=== PATIENT | female | born 1995 | race American Indian/Alaskan Native ===

== ENCOUNTER 2016-10-17 18:14 | Emergency (ER) | payer SELFPAY ==
[2016-10-17 18:34] VITALS: BP 101/73
== END 2016-10-17 20:20 | disposition left against medical advice (07) ==
LOC: ED 18:14
DX: H57.8 Other specified disorders of eye and adnexa (principal); Z53.21 Procedure and treatment not carried out due to patient leaving prior to being seen by health care provider

== ENCOUNTER 2017-03-18 15:43 | Emergency (ER) | payer SELFPAY ==
[2017-03-18] MEDS ORDERED: ZOFRAN ODT ONE (15:57)
[2017-03-18] MEDS ORDERED: ZOFRAN ODT PO ONE (16:00)
[2017-03-18 16:36] LABS: Basophils % (Auto) 0.4 % (0.0-1.8); Eosinophils % (Auto) 0.1 % (0.0-4.3); Hematocrit 38.3 % (30.3-42.9); Hemoglobin 12.7 gm/dl (10.1-14.3); Mean Corpuscular HGB Conc 33 % (30-34); Mean Corpuscular Hemoglobin 29 pg (28-32); Mean Corpuscular Volume 88 fl (79-97); Platelet Count 183 K/mm3 (140-440); Red Blood Count 4.36 M/mm3 (3.65-5.03); Red Cell Distribution Width 15.5 % (13.2-15.2); White Blood Count 10.3 K/mm3 (4.5-11.0)
[2017-03-18 16:50] LABS: Anion Gap 22 mmol/L; BUN/Creatinine Ratio 23.33; Blood Urea Nitrogen 14 mg/dL (7-17); Calcium 8.9 mg/dL (8.4-10.2); Carbon Dioxide 18 mmol/L (22-30); Chloride 102.1 mmol/L (98-107); Glucose 93 mg/dL (65-100); Potassium 3.5 mmol/L (3.6-5.0); Sodium 139 mmol/L (137-145)
[2017-03-18 19:27] LABS: Bilirubin,Urine NEG (Negative); Blood,Urine MOD (Negative); Ketones,Urine 80 mg/dL (Negative); Leukocyte Esterase,Urine TR (Negative); Mucus,Urine 3+ /HPF; Nitrite,Urine NEG (Negative); Urobilinogen,Urine < 2.0 mg/dL (<2.0)
[2017-03-18 19:28] LABS: RBC,Urine > 182.0 /HPF (0.0-6.0)
[2017-03-18] MEDS ORDERED: ZOFRAN IV ONE (20:53)
[2017-03-18] MEDS ORDERED: PEPCID IV ONE (20:53)
[2017-03-18] MEDS ORDERED: MORPHINE IV ONE (20:53)
[2017-03-18] MEDS ORDERED: D5NS 1,000 ML IV SCH ×2 (21:00)
[2017-03-18] MEDS ORDERED: K-DUR PO ONE (21:18)
--- NOTE | 2017-03-18 21:18 | Emergency Department Report ---
ED Abdominal Pain HPI - General Chief Complaint: Abdominal Pain Stated Complaint: ABDOMINAL PAIN/NAUSEA Time Seen by Provider: 03/18/17 20:45 Source: patient, family Mode of arrival: Ambulatory Limitations: No Limitations - History of Present Illness Initial Comments: 21-year-old female with no significant past medical or surgical history presents to the hospital with complaints of nausea, vomiting, and abdominal pain since this morning. Patient complains of intermittent lower abdominal cramping pain rated 8/10 in intensity. Pain worse with palpation at times. Patient also complains of discomfort in her chest after vomiting. She denies melena, hematochezia, hematemesis, fever, sick contacts, or recent travel. Patient currently on menstrual cycle. Patient complaining a recent cough and congestion and use the Robitussin-DM Severity scale (0 -10): 7 - Related Data Previous Rx's Medication Instructions Recorded Last Taken Type Bismuth Subsalicylate [Pepto 524 mg PO QID PRN #20 tab.chew 03/18/17 Unknown Rx Bismol] Ondansetron [Zofran Odt] 4 mg PO Q8HR PRN #20 tab.rapdis 03/18/17 Unknown Rx Allergies Allergy/AdvReac Type Severity Reaction Status Date / Time No Known Allergies Allergy Verified 03/18/17 15:49 ED Review of Systems ROS: Stated complaint: ABDOMINAL PAIN/NAUSEA Other details as noted in HPI Comment: All other systems reviewed and negative Other: Constitutional: No fevers chills Eyes: No eye pain visual changes or discharge ENT: No ear pain or throat pain Neck: Denies pain Respiratory: Denies shortness of breath Cardiovascular: Denies chest pain, palpitations, syncope GI: As per HPI : Denies dysuria, urinary frequency, or urgency Musculoskeletal: Denies back pain, joint swelling Skin: Denies rash, lesions, erythema Neurologic: Denies headache, numbness, weakness Psychiatric: Denies suicidal ideation, hallucinations ED Past Medical Hx - Past Medical History Previous Medical History?: No - Surgical History Past Surgical History?: No - Social History Smoking Status: Never Smoker Substance Use Type: None - Medications Home Medications: Home Medications Medication Instructions Recorded Confirmed Last Taken Type Bismuth Subsalicylate [Pepto 524 mg PO QID PRN #20 tab.chew 03/18/17 Unknown Rx Bismol] Ondansetron [Zofran Odt] 4 mg PO Q8HR PRN #20 tab.rapdis 03/18/17 Unknown Rx ED Physical Exam - General Limitations: No Limitations - Other Other exam information: General: No limitations, patient is alert in no acute distress Head exam: Atraumatic, normocephalic Eyes exam: Normal appearance ENT: Dry mucous membrane Neck exam: Normal inspection, full range of motion, no meningismus nontender Respiratory exam: Clear to auscultation bilateral, no wheezes, rales, crackles Cardiovascular: Normal rate and rhythm, normal heart sounds Abdomen: Soft, nondistended, and nontender, with normal bowel sounds, no rebound, or guarding Extremity: Full range of motion normal inspection no deformity Back: Normal Inspection, full range of motion, no tenderness Neurologic: Alert, oriented x3, cranial nerves intact, no motor or sensory deficit Psychiatric: normal affect, normal mood Skin: Warm, dry, intact ED Course Vital Signs 03/18/17 03/18/17 03/18/17 15:50 20:18 20:30 Temperature 98.0 F Pulse Rate 60 91 H 56 L Respiratory 24 16 9 L Rate Blood Pressure 132/85 121/66 O2 Sat by Pulse 100 100 Oximetry 03/18/17 03/18/17 03/18/17 21:00 21:30 22:00 Temperature Pulse Rate 75 76 74 Respiratory 20 23 11 L Rate Blood Pressure 120/75 103/60 103/63 O2 Sat by Pulse 99 98 100 Oximetry - Reevaluation(s) Reevaluation #1: 03/18/17 23:03 Patient feeling much better with ED treatment ED Medical Decision Making - Lab Data Result diagrams: 03/18/17 16:07 03/18/17 16:04 Lab Results 03/18/17 03/18/17 03/18/17 Range/Units 16:04 16:07 16:07 WBC 10.3 (4.5-11.0) K/mm3 RBC 4.36 (3.65-5.03) M/mm3 Hgb 12.7 (10.1-14.3) gm/dl Hct 38.3 (30.3-42.9) % MCV 88 (79-97) fl MCH 29 (28-32) pg MCHC 33 (30-34) % RDW 15.5 H (13.2-15.2) % Plt Count 183 (140-440) K/mm3 Lymph % (Auto) 8.2 L (13.4-35.0) % [place] % (Auto) 3.9 (0.0-7.3) % Eos % (Auto) 0.1 (0.0-4.3) % Baso % (Auto) 0.4 (0.0-1.8) % Lymph # 0.8 L (1.2-5.4) K/mm3 [place] # 0.4 (0.0-0.8) K/mm3 Eos # 0.0 (0.0-0.4) K/mm3 Baso # 0.0 (0.0-0.1) K/mm3 Seg Neutrophils % 87.4 H (40.0-70.0) % Seg Neutrophils # 9.0 H (1.8-7.7) K/mm3 Sodium 139 (137-145) mmol/L Potassium 3.5 L (3.6-5.0) mmol/L Chloride 102.1 (98-107) mmol/L Carbon Dioxide 18 L (22-30) mmol/L Anion Gap 22 mmol/L BUN 14 (7-17) mg/dL Creatinine 0.6 L (0.7-1.2) mg/dL Estimated GFR > 60 ml/min BUN/Creatinine Ratio 23.33 % Glucose 93 (65-100) mg/dL Calcium 8.9 (8.4-10.2) mg/dL HCG, Qual Negative (Negative) Urine Color (Yellow) Urine Turbidity (Clear) Urine pH (5.0-7.0) Ur Specific [place] (1.003-1.030) Urine Protein (Negative) mg/dL Urine Glucose (UA) (Negative) mg/dL Urine Ketones (Negative) mg/dL Urine Blood (Negative) Urine Nitrite (Negative) Urine Bilirubin (Negative) Urine Urobilinogen (<2.0) mg/dL Ur Leukocyte Esterase (Negative) Urine WBC (Auto) (0.0-6.0) /HPF Urine RBC (Auto) (0.0-6.0) /HPF U Epithel Cells (Auto) (0-13.0) /HPF Urine Mucus /HPF 03/18/17 Range/Units 19:06 WBC (4.5-11.0) K/mm3 RBC (3.65-5.03) M/mm3 Hgb (10.1-14.3) gm/dl Hct (30.3-42.9) % MCV (79-97) fl MCH (28-32) pg MCHC (30-34) % RDW (13.2-15.2) % Plt Count (140-440) K/mm3 Lymph % (Auto) (13.4-35.0) % [place] % (Auto) (0.0-7.3) % Eos % (Auto) (0.0-4.3) % Baso % (Auto) (0.0-1.8) % Lymph # (1.2-5.4) K/mm3 [place] # (0.0-0.8) K/mm3 Eos # (0.0-0.4) K/mm3 Baso # (0.0-0.1) K/mm3 Seg Neutrophils % (40.0-70.0) % Seg Neutrophils # (1.8-7.7) K/mm3 Sodium (137-145) mmol/L Potassium (3.6-5.0) mmol/L Chloride (98-107) mmol/L Carbon Dioxide (22-30) mmol/L Anion Gap mmol/L BUN (7-17) mg/dL Creatinine (0.7-1.2) mg/dL Estimated GFR ml/min BUN/Creatinine Ratio % Glucose (65-100) mg/dL Calcium (8.4-10.2) mg/dL HCG, Qual (Negative) Urine Color Yellow (Yellow) Urine Turbidity Clear (Clear) Urine pH 7.0 (5.0-7.0) Ur Specific [place] 1.030 (1.003-1.030) Urine Protein 100 mg/dl (Negative) mg/dL Urine Glucose (UA) Neg (Negative) mg/dL Urine Ketones 80 (Negative) mg/dL Urine Blood Mod (Negative) Urine Nitrite Neg (Negative) Urine Bilirubin Neg (Negative) Urine Urobilinogen < 2.0 (<2.0) mg/dL Ur Leukocyte Esterase Tr (Negative) Urine WBC (Auto) 2.0 (0.0-6.0) /HPF Urine RBC (Auto) > 182.0 (0.0-6.0) /HPF U Epithel Cells (Auto) 2.0 (0-13.0) /HPF Urine Mucus 3+ /HPF - Medical Decision Making Received DnS 2 L, Zofran, and potassium in the ED. She reports feeling much better and able to tolerate by mouth. She will be discharged home with - Differential Diagnosis gastroenteritis, gastroparesis, appendicitis, , UTI Critical Care Time: No Critical care attestation.: If time is entered above; I have spent that time in minutes in the direct care of this critically ill patient, excluding procedure time. ED Disposition Clinical Impression: URI (upper respiratory infection), Gastroenteritis, Hypokalemia Disposition: TO HOME OR SELFCARE Is pt being admited?: No Does the pt Need Aspirin: No Condition: Stable Instructions: Upper Respiratory Infection (ED), Gastroenteritis (ED), Hypokalemia (ED) Additional Instructions: Take the medication as prescribed. Follow-up with your primary care doctor or the doctor provided. Return if symptoms worsen. Continue to drink plenty of fluids. Prescriptions: Bismuth Subsalicylate [Pepto Bismol] 524 mg PO QID PRN #20 tab.chew PRN Reason: Diarrhea Ondansetron [Zofran Odt] 4 mg PO Q8HR PRN #20 tab.rapdis PRN Reason: Nausea And Vomiting Referrals: PRIMARY MD CONG [Primary Care Provider] - 3-5 Days [facility] [Provider Group] - 3-5 Days SUSAN CASTRO MD [Staff Physician] - 3-5 Days Time of Disposition: 23:06
[2017-03-18] MEDS ORDERED: BENADRYL IV ONE (23:11)
[2017-03-18] MEDS ORDERED: REGLAN IV ONE (23:11)
[2017-03-19 00:21] VITALS: BP 118/76
== END 2017-03-19 00:20 | disposition home or self-care (01) ==
LOC: ED 15:43
DX: J06.9 Acute upper respiratory infection, unspecified (principal); K52.9 Noninfective gastroenteritis and colitis, unspecified; E87.6 Hypokalemia
CPT/HCPCS: 36415; 80048; 81001; 84703; 85025; 96361; 96374; 96375; 99284; J1200; J2270; J2405; J2765; J7042; Q0162

== ENCOUNTER 2017-03-20 08:28 | Emergency (ER) | payer OTHER ==
[2017-03-20 09:22] LABS: Basophils % (Auto) 0.7 % (0.0-1.8); Eosinophils % (Auto) 0.7 % (0.0-4.3); Hematocrit 37.3 % (30.3-42.9); Hemoglobin 11.9 gm/dl (10.1-14.3); Mean Corpuscular HGB Conc 32 % (30-34); Mean Corpuscular Hemoglobin 28 pg (28-32); Mean Corpuscular Volume 89 fl (79-97); Platelet Count 191 K/mm3 (140-440); Red Cell Distribution Width 15.7 % (13.2-15.2)
[2017-03-20 09:30] LABS: Anion Gap 19 mmol/L; BUN/Creatinine Ratio 16.25; Blood Urea Nitrogen 13 mg/dL (7-17); Calcium 8.8 mg/dL (8.4-10.2); Carbon Dioxide 21 mmol/L (22-30); Glucose 94 mg/dL (65-100); Potassium 3.6 mmol/L (3.6-5.0); Sodium 139 mmol/L (137-145)
[2017-03-20] MEDS ORDERED: ZOFRAN IV ONE ×2 (10:28→16:52)
[2017-03-20] MEDS ORDERED: REGLAN IV ONE (10:28)
[2017-03-20] MEDS ORDERED: BENADRYL IV ONE (10:28)
[2017-03-20] MEDS ORDERED: MORPHINE IV ONE ×2 (10:28→16:41)
[2017-03-20] MEDS ORDERED: PEPCID IV ONE (10:48)
[2017-03-20] MEDS ORDERED: NACL ONE (10:51)
[2017-03-20] MEDS ORDERED: ATIVAN IV ONE (10:57)
[2017-03-20] MEDS ORDERED: ALUM-MAG HYDROX-SIMETH 200-200-20MG/5ML PO ONE (10:58)
[2017-03-20] MEDS ORDERED: LIDOCAINE VISCOUS 2% PO ONE (10:58)
[2017-03-20] MEDS ORDERED: ZOFRAN ODT ONE (10:59)
[2017-03-20 11:00] LABS: Alanine Aminotransferase 12 units/L (7-56); Albumin 4.2 g/dL (3.9-5); Albumin/Globulin Ratio 1.3 %; Alkaline Phosphatase 48 units/L (35-129); Lipase 37 units/L (13-60); Total Protein 7.5 g/dL (6.3-8.2)
[2017-03-20] MEDS ORDERED: D5NS 1,000 ML IV SCH ×3 (11:00→13:00)
[2017-03-20 11:36] LABS: Bilirubin,Direct < 0.2 mg/dL (0-0.2)
--- NOTE | 2017-03-20 11:49 | Emergency Department Report ---
ED N/V/D HPI - General Chief complaint: Nausea/Vomiting/Diarrhea Stated complaint: NAUSEA AND VOMITING Time Seen by Provider: 03/20/17 10:18 Source: patient Mode of arrival: Ambulatory Limitations: No Limitations - History of Present Illness Initial comments: 21 year female old with no significant past medical surgical history presents to the hospital complaining of nausea, vomiting, and a little diarrhea 2 days. Patient presented on the and is seen and evaluated by me. Prescribed Zofran and Pepto-Bismol. Patient continues to vomit despite Zofran and has been unable to tolerate by mouth intake. Patient presents tremulous and crying stating she's having significant discomfort (secondary to burning in her the middle of her chest). She denies abdominal pain and fever. Diarrhea has improved. Once again she denies recent travel or sick contacts. Patient expresses concern for pneumonia but states she is no longer coughing. Patient seems extremely anxious. - Related Data Previous Rx's Medication Instructions Recorded Last Taken Type Bismuth Subsalicylate [Pepto 524 mg PO QID PRN #20 tab.chew 03/18/17 Unknown Rx Bismol] Ondansetron [Zofran Odt] 4 mg PO Q8HR PRN #20 tab.rapdis 03/18/17 Unknown Rx Allergies Allergy/AdvReac Type Severity Reaction Status Date / Time No Known Allergies Allergy Verified 03/18/17 15:49 ED Review of Systems ROS: Stated complaint: NAUSEA AND VOMITING Other details as noted in HPI Comment: All other systems reviewed and negative Other: Constitutional: No fevers chills Eyes: No eye pain visual changes ENT: No ear pain or throat pain Neck: Denies pain Respiratory: Denies cough wheezing shortness of breath Cardiovascular: Denies chest pain, palpitations, syncope GI: As per HPI : Denies dysuria Musculoskeletal: Denies back pain Skin: Denies rash, lesions, erythema Neurologic: Denies headache, numbness, weakness Psychiatric: Denies suicidal ideation, hallucinations ED Past Medical Hx - Past Medical History Previous Medical History?: No - Surgical History Past Surgical History?: No - Social History Smoking Status: Never Smoker Substance Use Type: None - Medications Home Medications: Home Medications Medication Instructions Recorded Confirmed Last Taken Type Bismuth Subsalicylate [Pepto 524 mg PO QID PRN #20 tab.chew 03/18/17 Unknown Rx Bismol] Ondansetron [Zofran Odt] 4 mg PO Q8HR PRN #20 tab.rapdis 03/18/17 Unknown Rx ED Physical Exam - General Limitations: No Limitations - Other Other exam information: General: No limitations, patient is alert in no acute distress Head exam: Atraumatic, normocephalic Eyes exam: Normal appearance, pupils equal reactive to light, extraocular movements intact ENT: Moist mucous membrane, normal oropharynx Neck exam: Normal inspection, full range of motion, no meningismus nontender Respiratory exam: Clear to auscultation bilateral, no wheezes, rales, crackles Cardiovascular: Normal rate and rhythm, normal heart sounds Abdomen: Soft, nondistended, and nontender, with normal bowel sounds, no rebound, or guarding Extremity: Full range of motion normal inspection no deformity Back: Normal Inspection, full range of motion, no tenderness Neurologic: Alert, oriented x3, cranial nerves intact, no motor or sensory deficit Psychiatric: Anxious, crying Skin: Warm, dry, intact ED Course Vital Signs 03/20/17 03/20/17 03/20/17 08:45 10:45 11:00 Temperature 98.8 F Pulse Rate 61 59 L Respiratory 18 20 18 Rate Blood Pressure 140/88 Blood Pressure 134/70 [Right] O2 Sat by Pulse 100 100 100 Oximetry 03/20/17 12:59 Temperature Pulse Rate 59 L Respiratory 16 Rate Blood Pressure Blood Pressure 109/72 [Right] O2 Sat by Pulse 100 Oximetry - Reevaluation(s) Reevaluation #1: 03/20/17 11:52 Patient concern that something is seriously wrong with her and asking that "everything be checked". I still think that patient is having gastroenteritis. Labs unremarkable. Urine pending. CT ordered and pending. ED Medical Decision Making - Lab Data Result diagrams: 03/20/17 09:00 03/20/17 09:00 Lab Results 03/20/17 03/20/17 03/20/17 Range/Units 09:00 09:00 10:19 WBC 7.0 (4.5-11.0) K/mm3 RBC 4.20 (3.65-5.03) M/mm3 Hgb 11.9 (10.1-14.3) gm/dl Hct 37.3 (30.3-42.9) % MCV 89 (79-97) fl MCH 28 (28-32) pg MCHC 32 (30-34) % RDW 15.7 H (13.2-15.2) % Plt Count 191 (140-440) K/mm3 Lymph % (Auto) 20.4 (13.4-35.0) % [place] % (Auto) 10.0 H (0.0-7.3) % Eos % (Auto) 0.7 (0.0-4.3) % Baso % (Auto) 0.7 (0.0-1.8) % Lymph # 1.4 (1.2-5.4) K/mm3 [place] # 0.7 (0.0-0.8) K/mm3 Eos # 0.1 (0.0-0.4) K/mm3 Baso # 0.0 (0.0-0.1) K/mm3 Seg Neutrophils % 68.2 (40.0-70.0) % Seg Neutrophils # 4.8 (1.8-7.7) K/mm3 Sodium 139 (137-145) mmol/L Potassium 3.6 (3.6-5.0) mmol/L Chloride 103.0 (98-107) mmol/L Carbon Dioxide 21 L (22-30) mmol/L Anion Gap 19 mmol/L BUN 13 (7-17) mg/dL Creatinine 0.8 (0.7-1.2) mg/dL Estimated GFR > 60 ml/min BUN/Creatinine Ratio 16.25 % Glucose 94 (65-100) mg/dL Calcium 8.8 (8.4-10.2) mg/dL Total Bilirubin 0.20 (0.1-1.2) mg/dL Direct Bilirubin < 0.2 (0-0.2) mg/dL Indirect Bilirubin 0.0 mg/dL AST 15 (5-40) units/L ALT 12 (7-56) units/L Alkaline Phosphatase 48 (35-129) units/L Total Protein 7.5 (6.3-8.2) g/dL Albumin 4.2 (3.9-5) g/dL Albumin/Globulin Ratio 1.3 % Lipase 37 (13-60) units/L Urine Color (Yellow) Urine Turbidity (Clear) Urine pH (5.0-7.0) Ur Specific [place] (1.003-1.030) Urine Protein (Negative) mg/dL Urine Glucose (UA) (Negative) mg/dL Urine Ketones (Negative) mg/dL Urine Blood (Negative) Urine Nitrite (Negative) Urine Bilirubin (Negative) Urine Urobilinogen (<2.0) mg/dL Ur Leukocyte Esterase (Negative) Urine WBC (Auto) (0.0-6.0) /HPF Urine RBC (Auto) (0.0-6.0) /HPF U Epithel Cells (Auto) (0-13.0) /HPF Urine Bacteria (Auto) (Negative) /HPF Urine HCG, Qual (Negative) 03/20/17 Range/Units 12:32 WBC (4.5-11.0) K/mm3 RBC (3.65-5.03) M/mm3 Hgb (10.1-14.3) gm/dl Hct (30.3-42.9) % MCV (79-97) fl MCH (28-32) pg MCHC (30-34) % RDW (13.2-15.2) % Plt Count (140-440) K/mm3 Lymph % (Auto) (13.4-35.0) % [place] % (Auto) (0.0-7.3) % Eos % (Auto) (0.0-4.3) % Baso % (Auto) (0.0-1.8) % Lymph # (1.2-5.4) K/mm3 [place] # (0.0-0.8) K/mm3 Eos # (0.0-0.4) K/mm3 Baso # (0.0-0.1) K/mm3 Seg Neutrophils % (40.0-70.0) % Seg Neutrophils # (1.8-7.7) K/mm3 Sodium (137-145) mmol/L Potassium (3.6-5.0) mmol/L Chloride (98-107) mmol/L Carbon Dioxide (22-30) mmol/L Anion Gap mmol/L BUN (7-17) mg/dL Creatinine (0.7-1.2) mg/dL Estimated GFR ml/min BUN/Creatinine Ratio % Glucose (65-100) mg/dL Calcium (8.4-10.2) mg/dL Total Bilirubin (0.1-1.2) mg/dL Direct Bilirubin (0-0.2) mg/dL Indirect Bilirubin mg/dL AST (5-40) units/L ALT (7-56) units/L Alkaline Phosphatase (35-129) units/L Total Protein (6.3-8.2) g/dL Albumin (3.9-5) g/dL Albumin/Globulin Ratio % Lipase (13-60) units/L Urine Color [place] (Yellow) Urine Turbidity Clear (Clear) Urine pH 8.0 H (5.0-7.0) Ur Specific [place] 1.011 (1.003-1.030) Urine Protein <15 mg/dl (Negative) mg/dL Urine Glucose (UA) >=500 (Negative) mg/dL Urine Ketones Tr (Negative) mg/dL Urine Blood Mod (Negative) Urine Nitrite Neg (Negative) Urine Bilirubin Neg (Negative) Urine Urobilinogen < 2.0 (<2.0) mg/dL Ur Leukocyte Esterase Neg (Negative) Urine WBC (Auto) < 1.0 (0.0-6.0) /HPF Urine RBC (Auto) 8.0 (0.0-6.0) /HPF U Epithel Cells (Auto) 1.0 (0-13.0) /HPF Urine Bacteria (Auto) 4+ (Negative) /HPF Urine HCG, Qual Negative (Negative) - Radiology Data Radiology results: report reviewed Chest x-ray PA and lateral: No acute findings CT abdomen and pelvis IV contrast. 2 mm nonobstructing calculus right kidney. Mild degree of free fluid in the pelvic cavity within physiological limits. No acute intra-abdominal pathology - Medical Decision Making After initial round of meds patient's left hours and symptoms seemed to improve. Once awake she was given a by mouth challenge and fail. Patient developed vomiting a repeated chest burning pain. Phenergan suppository attempted but patient was unable to retain the suppository. Additional Zofran ordered. Once patient can tolerate by mouth again will reattempt GI cocktail to see if this gives relief and chest burning. CT pelvis and chest x-ray unremarkable. I still suspect that patient has gastroenteritis. She will be admitted to the hospital due to intractable nausea and vomiting despite treatment. - Differential Diagnosis pancreatitis, gastroenteritis, diverticulitis, appendicitis, pneumonia, URI Critical Care Time: No Critical care attestation.: If time is entered above; I have spent that time in minutes in the direct care of this critically ill patient, excluding procedure time. ED Disposition Clinical Impression: Gastroenteritis, Intractable nausea and vomiting Disposition: OP ADMIT IP TO THIS HOSP Is pt being admited?: Yes Condition: Stable Time of Disposition: 16:58 (Dr Chiu/hosp)
[2017-03-20 12:47] LABS: Bacteria,Urine 4+ /HPF (Negative); Bilirubin,Urine NEG (Negative); Blood,Urine MOD (Negative); Ketones,Urine TR mg/dL (Negative); Leukocyte Esterase,Urine NEG (Negative); Nitrite,Urine NEG (Negative); Protein,Urine <15 mg/dL mg/dL (Negative); Urobilinogen,Urine < 2.0 mg/dL (<2.0); WBC,Urine < 1.0 /HPF (0.0-6.0)
--- NOTE | 2017-03-20 13:58 | XRay Report ---
XRAY CHEST TWO VIEWS: 03/20/17 08:28:00 CLINICAL: Cough. COMPARISON: None FINDINGS: Normal heart and pulmonary vasculature. The lungs are normally expanded and clear.The bones and soft tissues are unremarkable. IMPRESSION: Normal chest.No pneumonia.
--- NOTE | 2017-03-20 14:32 | Cat Scan Report ---
FINAL REPORT PROCEDURE: CT ABDOMEN PELVIS W CON TECHNIQUE: Computerized axial tomography of the abdomen and pelvis was performed after the IV injection of iodinated nonionic contrast. HISTORY: n,v,d COMPARISON: No prior studies are available for comparison. FINDINGS: Liver, spleen, pancreas and adrenal glands are within normal limits. 2 millimeter nonobstructive calculus is noted in the lower pole right kidney. Otherwise bilateral kidneys demonstrate uniform enhancement without hydronephrosis. Urinary bladder is partially filled and appears normal. Aorta is of normal caliber. Mild degree of free fluid is noted in the pelvic cavity. There is no free air. Gallbladder is unremarkable. Small bowel loops are within normal limits. There is mild degree residual stool. Appendix is normal.. IMPRESSION: 2 millimeter nonobstructive calculus right kidney. Mild degree of free fluid in the pelvic cavity is within physiologic limits. Otherwise no acute intra-abdominal or pelvic pathology is noted.
[2017-03-20] MEDS ORDERED: PHENERGAN PR ONE (16:28)
[2017-03-20 17:43] LABS: Urine Drugs of Abuse Note Disclamer
--- NOTE | 2017-03-20 17:56 | History and Physical Report ---
History of Present Illness Chief complaint: Im nauseated, and i keep vomiting History of present illness: 21 YO Female with no PMH presents to ED for evaluation. Pt states that she has experienced nausea and vomiting for the past days. Pt is currently having her menstrual period, and symptoms began a day before onset of menses. Pt symptoms have been persistent for the past 3 days. Pt denies fever, chills, CP, palpitations, BRBPR, productive cough, recent ill contacts, foreign travel, consumption of food/water from new or different sources, similar symptoms in family/friends. Pt seen and evaluated in ED. Pt underwent CT abdomen and pelvis which showed no acute findings. Pt treated with IVF, supportive care, and anti emetic therapy. Pt medically optimized. 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 Past History Past Medical History: No medical history, other (reviewed) Past Surgical History: No surgical history, Other (reviewed) Social history: single, lives with family. denies: smoking, alcohol abuse, prescription drug abuse, IV drug use Family history: no significant family history, other (reviewed) Medications and Allergies Allergies Allergy/AdvReac Type Severity Reaction Status Date / Time No Known Allergies Allergy Verified 03/18/17 15:49 Home Medications Medication Instructions Recorded Confirmed Last Taken Type Bismuth Subsalicylate [Pepto 524 mg PO QID PRN #20 tab.chew 03/18/17 Unknown Rx Bismol] Ondansetron [Zofran Odt] 4 mg PO Q8HR PRN #20 tab.rapdis 03/18/17 Unknown Rx Active Meds: Active Medications Dextrose/Sodium Chloride (D5ns) 1,000 mls @ 999 mls/hr IV DIRECT JASPER Last Admin: 03/20/17 11:25 Dose: 999 mls/hr Dextrose/Sodium Chloride (D5ns) 1,000 mls @ 999 mls/hr IV DIRECT JASPER Last Admin: 03/20/17 13:00 Dose: 999 mls/hr Sodium Chloride (Nacl 0.45%) 1,000 mls @ 1,000 mls/hr IV DIRECT JASPER Review of Systems Constitutional: no weight loss, no weight gain, no fever, no chills, no sweats Ears, nose, mouth and throat: no ear pain, no ear discharge, no tinnitis, no decreased hearing Breasts: no change in shape, no swelling, no mass Cardiovascular: no chest pain, no orthopnea, no palpitations, no rapid/ irregular heart beat Respiratory: no cough, no cough with sputum, no excessive sputum, no hemoptysis Gastrointestinal: nausea, vomiting, no constipation, no change in bowel habits, no BRBPR, no melena, no excessive gas, no jaundice, no dyspepsia/bloating Genitourinary Female: no post void dribbling, no incomplete emptying, no urge incontinence, no mixed incontinence Menstruation: currently menstrual Rectal: no pain, no incontinence, no bleeding Musculoskeletal: no neck stiffness, no neck pain, no shooting arm pain, no arm numbness/tingling, no low back pain, no shooting leg pain Integumentary: no rash, no pruritis, no redness, no sores, no wounds Neurological: no paralysis, no weakness, no parathesias, no numbness, no tingling Psychiatric: anxiety, no memory loss, no change in sleep habits, no sleep disturbances, no insomnia Endocrine: no cold intolerance, no heat intolerance, no polyphagia, no excessive thirst, no polydipsia, no excessive sweating Hematologic/Lymphatic: no easy bruising, no easy bleeding Allergic/Immunologic: no urticaria, no allergic rhinitis, no wheezing Exam - Constitutional Vitals: Temp Pulse Resp BP Pulse Ox 98.8 F 78 14 121/72 100 03/20/17 08:45 03/20/17 16:15 03/20/17 17:19 03/20/17 16:15 03/20/17 16:15 General appearance: Present: no acute distress, well-nourished - EENT Eyes: Present: PERRL ENT: hearing intact, clear oral mucosa - Neck Neck: Present: supple, normal ROM - Respiratory Respiratory effort: normal Respiratory: bilateral: CTA - Cardiovascular Heart Sounds: Present: S1 & S2. Absent: rub, click - Extremities Extremities: pulses symmetrical, No edema Peripheral Pulses: within normal limits - Abdominal General gastrointestinal: Present: soft, non-tender, non-distended, normal bowel sounds Female genitourinary: Present: normal - Integumentary Integumentary: Present: clear, warm, dry - Musculoskeletal Musculoskeletal: gait normal, strength equal bilaterally - Psychiatric Psychiatric: appropriate mood/affect, intact judgment & insight - Neurologic Neurologic: CNII-XII intact, moves all extremities Results - Labs CBC & Chem 7: 03/20/17 09:00 03/20/17 09:00 Labs: Abnormal lab results 03/20/17 03/20/17 03/20/17 Range/Units 09:00 09:00 12:32 RDW 15.7 H (13.2-15.2) % [place] % (Auto) 10.0 H (0.0-7.3) % Carbon Dioxide 21 L (22-30) mmol/L Urine pH 8.0 H (5.0-7.0) Assessment and Plan - Patient Problems (1) Endometriosis Current Visit: Yes Status: Suspected Plan to address problem: F/U with MAINTENANCE AND ENGINEERING MANAGER in 3-5 days to discuss risk/benefit of oral contraceptive therapy (2) Intractable nausea and vomiting Current Visit: Yes Status: Acute Qualifiers: Vomiting type: V Plan to address problem: IVF resuscitation, anti emetic therapy, pain control
[2017-03-20] MEDS ORDERED: NACL 0.45% 1,000 ML IV SCH (18:00)
[2017-03-20 20:30] VITALS: BP 108/71
== END 2017-03-20 20:30 | disposition admitted as inpatient to this hospital (09) ==
LOC: ED 08:28
DX: K52.9 Noninfective gastroenteritis and colitis, unspecified (principal)
CPT/HCPCS: 36415; 71020; 74177; 80048; 80074; 80307; 81001; 81025; 82962; 83690; 85025; 96361; 96374; 96375; 96376; 99285; J2060; J2270; J2405; J2765; J7042; Q9967; Q0162

== ENCOUNTER 2017-04-16 12:05 | Emergency (ER) | payer SELFPAY ==
[2017-04-16 18:58] LABS: Bacteria,Urine 1+ /HPF (Negative); Bilirubin,Urine NEG (Negative); Blood,Urine NEG (Negative); Ketones,Urine NEG (Negative); Leukocyte Esterase,Urine NEG (Negative); Nitrite,Urine NEG (Negative); Protein,Urine <15 mg/dL mg/dL (Negative); RBC,Urine < 1.0 /HPF (0.0-6.0); Urobilinogen,Urine < 2.0 mg/dL (<2.0); WBC,Urine < 1.0 /HPF (0.0-6.0)
--- NOTE | 2017-04-16 19:07 | Emergency Department Report ---
ED Abdominal Pain HPI - General Chief Complaint: Abdominal Pain Stated Complaint: LOWER ABD PAIN Time Seen by Provider: 04/16/17 17:19 Source: patient Mode of arrival: Ambulatory Limitations: No Limitations - History of Present Illness Initial Comments: pt is a 21 y/o aaf with nmh who presents for LLQ pain x 2 weeks pt has had this pain in past usual relieved with ibuprofen po pt denies fever no chills no n/v no vaginal discharge no back pain no vaginal bleeding, no hx of ovarian cysts no fibroids there is no pain at this time, LMP: 03/20/2017 last sexual contact 1 month ago, pt defers vaginal exam at this time as its not possible for sti MD Complaint: other (LLQ pain superpubic ) Onset/Timin -: Sudden, week(s) Location: LLQ, suprapubic Radiation: none Migration to: no migration Severity: mild Severity scale (0 -10): 1 Quality: cramping Consistency: intermittent Improves With: nothing Worsens With: nothing Associated Symptoms: denies: nausea, vomiting, diarrhea, fever, chills, constipation, dysuria, hematemesis, hematochezia, melena, hematuria, anorexia, syncope - Related Data LMP Date: 03/20/17 Previous Rx's Medication Instructions Recorded Last Taken Type Bismuth Subsalicylate [Pepto 524 mg PO QID PRN #20 tab.chew 03/18/17 Unknown Rx Bismol] Ondansetron [Zofran Odt] 4 mg PO Q8HR PRN #20 tab.rapdis 03/18/17 Unknown Rx Promethazine [Phenergan] 12.5 mg MD Q6H PRN #10 supp.rect 03/20/17 Unknown Rx Ibuprofen [Motrin 800 MG tab] 800 mg PO Q8HR PRN #30 tablet 04/16/17 Unknown Rx Allergies Allergy/AdvReac Type Severity Reaction Status Date / Time No Known Allergies Allergy Verified 03/18/17 15:49 ED Review of Systems ROS: Stated complaint: LOWER ABD PAIN Other details as noted in HPI Constitutional: denies: chills, fever Eyes: denies: eye pain, eye discharge, vision change ENT: denies: ear pain, throat pain Respiratory: denies: cough, shortness of breath, wheezing Cardiovascular: denies: chest pain, palpitations Endocrine: no symptoms reported Gastrointestinal: abdominal pain (LLQ ). denies: nausea, vomiting, diarrhea, constipation, hematemesis, melena, hematochezia Genitourinary: denies: urgency, dysuria, discharge Musculoskeletal: denies: back pain, joint swelling, arthralgia Skin: denies: rash, lesions Neurological: denies: headache, weakness, paresthesias Psychiatric: denies: anxiety, depression Hematological/Lymphatic: denies: easy bleeding, easy bruising ED Past Medical Hx - Past Medical History Previous Medical History?: No - Surgical History Past Surgical History?: No - Social History Smoking Status: Never Smoker Substance Use Type: None - Medications Home Medications: Home Medications Medication Instructions Recorded Confirmed Last Taken Type Bismuth Subsalicylate [Pepto 524 mg PO QID PRN #20 tab.chew 03/18/17 Unknown Rx Bismol] Ondansetron [Zofran Odt] 4 mg PO Q8HR PRN #20 tab.rapdis 03/18/17 Unknown Rx Promethazine [Phenergan] 12.5 mg MD Q6H PRN #10 supp.rect 03/20/17 Unknown Rx Ibuprofen [Motrin 800 MG tab] 800 mg PO Q8HR PRN #30 tablet 04/16/17 Unknown Rx ED Physical Exam - General Limitations: No Limitations General appearance: alert, in no apparent distress - Head Head exam: Present: atraumatic, normocephalic - Eye Eye exam: Present: normal appearance - ENT ENT exam: Present: mucous membranes moist - Neck Neck exam: Present: normal inspection - Respiratory Respiratory exam: Present: normal lung sounds bilaterally. Absent: respiratory distress - Cardiovascular Cardiovascular Exam: Present: regular rate, normal rhythm. Absent: systolic murmur, diastolic murmur, rubs, gallop - GI/Abdominal GI/Abdominal exam: Present: soft, normal bowel sounds. Absent: distended, tenderness, guarding, rebound, rigid, organomegaly, mass, bruit, pulsatile mass , hernia - Rectal Rectal exam: Present: deferred - External exam: Present: other (pt defers) - Extremities Exam Extremities exam: Present: normal inspection - Back Exam Back exam: Present: normal inspection - Neurological Exam Neurological exam: Present: alert, oriented X3 - Psychiatric Psychiatric exam: Present: normal affect, normal mood - Skin Skin exam: Present: warm, dry, intact, normal color. Absent: rash ED Course Vital Signs 04/16/17 13:03 Temperature 98.6 F Pulse Rate 73 Respiratory 16 Rate Blood Pressure 113/72 O2 Sat by Pulse 100 Oximetry ED Medical Decision Making - Lab Data Laboratory Tests 04/16/17 18:10 Urine Color Colorless Urine Turbidity Clear Urine pH 8.0 H Ur Specific [place] 1.004 Urine Protein <15 mg/dl Urine Glucose (UA) Neg Urine Ketones Neg Urine Blood Neg Urine Nitrite Neg Ur Reducing Substances Not Reportable Urine Bilirubin Neg Urine Ictotest Not Reportable Urine Urobilinogen < 2.0 Ur Leukocyte Esterase Neg Urine WBC (Auto) < 1.0 Urine RBC (Auto) < 1.0 U Epithel Cells (Auto) < 1.0 Urine Bacteria (Auto) 1+ Urine HCG, Qual Negative - Medical Decision Making pt is a 21 y/o aaf with nmh who presents for LLQ pain x 2 weeks pt has had this pain in past usual relieved with ibuprofen po pt denies fever no chills no n/v no vaginal discharge no back pain no vaginal bleeding, no hx of ovarian cysts no fibroids there is no pain at this time, LMP: 03/20/2017 last sexual contact 1 month ago, pt defers vaginal exam at this time as its not possible for sti. exam : pt appears well nontoxic no abdominal pain at this time, bs x 4 qds normal abd soft round no rebound no bruit no hernia no cva tenderness pt denie vaginal discharge no pelvic pain no superpubic pain to palpation, ua: normal, hcg: negative pt advises will see absorption and adsorption engineer for follow up with symptoms worsens as she does not concur with vagina exam and culture at this time. pt advised to return to emergency if symptoms worsen. Critical care attestation.: If time is entered above; I have spent that time in minutes in the direct care of this critically ill patient, excluding procedure time. ED Disposition Clinical Impression: Abdominal pain Qualifiers: Abdominal location: left lower quadrant Qualified Code(s): R10.32 - Left lower quadrant pain Disposition: DC- TO HOME OR SELFCARE Is pt being admited?: No Does the pt Need Aspirin: No Condition: Good Instructions: Abdominal Pain (ED) Prescriptions: Ibuprofen [Motrin 800 MG tab] 800 mg PO Q8HR PRN #30 tablet PRN Reason: Pain Referrals: PRIMARY CARE, [Primary Care Provider] - 3-5 Days Forms: Work/School Release Form(ED) Time of Disposition: 19:13
[2017-04-16 19:09] VITALS: BP 109/66
== END 2017-04-16 19:30 | disposition home or self-care (01) ==
LOC: ED 12:05
DX: R10.32 Left lower quadrant pain (principal)
CPT/HCPCS: 81001; 81025; 99283